=== PATIENT | male | born 1965 | race Caucasian/White ===

== ENCOUNTER 2018-06-16 05:33 | Day surgery (SDC) | payer OTHER ==
[~2018-06-16] VITALS: Ht 180.3 cm; Wt 84.4 kg
--- NOTE | ~2018-06-16 | O ---
[facility] [place] [address] OPERATIVE REPORT Name: BOWEN FLOWER Room #: 150-6 [facility] M.R.#: [id number] Admission: 06/16/18 ������������������ Attend Phys: Don Maria MD Discharge: ������������������ Date of : 61 Report #: [id number] THIS REPORT FOR: //name// CC: Harper Maria DATE OF SERVICE: 06/16/2018 PREOPERATIVE DIAGNOSES: Deviated nasal septum with nasal airway obstruction, chronic maxillary and ethmoid sinusitis with nasal and sinus polyposis. POSTOPERATIVE DIAGNOSES: Deviated nasal septum with nasal airway obstruction, chronic maxillary and ethmoid sinusitis with nasal and sinus polyposis. OPERATIVE PROCEDURE: Nasal septoplasty, endoscopic bilateral maxillary antrostomies with removal of polyps, bilateral complete ethmoidectomies. ANESTHESIA: General by laryngeal mask. DESCRIPTION OF PROCEDURE: The patient was taken to the operating room and placed in supine position. General anesthesia was induced by laryngeal mask. Once adequate general anesthesia was obtained, local nasal anesthesia was induced by submucoperichondrial injection of 1% lidocaine with 1:100,000 epinephrine and topical application of cocaine solution. The patient was then draped in a sterile manner. The patient had a nasal septal deviation primarily to the left side. A hemitransfixion incision was placed on the left side of the nose, and the mucoperichondrium and mucoperiosteum were elevated off the septum. The cartilage was incised from the bony cartilaginous junction, and a portion of cartilage and bone were removed from the midportion of the septum. There was a large spur along the floor consisting of fracture of the maxillary crest and hypertrophic cartilage. The cartilage was removed as a long strip. The maxillary crest was infractured and rongeured. After these maneuvers, the septum sat more in the midline. The hemitransfixion incision was then closed with 4-0 chromic suture and a 4-0 plain mattress sutures placed as well. The nasal endoscope was used to visualize the left nasal cavity and the middle turbinate was deviated medially. There was a hortencia bullosa within the middle turbinate, and this was opened up into the middle meatus by removing the lateral wall. The uncinate process was removed using the microdebrider and the natural opening of the maxillary sinus was located, was enlarged in a posterior inferior manner by removing the soft fontanelle. There are also some Agger nasi cells in the posterior aspect of the opening, and these were opened up into the ethmoid cavity. An ethmoidectomy was performed by removing the ethmoidal bulla and then following the ethmoid air cells back to and through the basal lamella and then forward along the lamina papyracea and fovea ethmoidalis to complete the ethmoidectomy anteriorly. Surgiflo was placed into the ethmoid cavity and middle meatus for hemostasis. The exact same procedure was performed on the [address] [address] OPERATIVE REPORT Name: BOWEN FLOWER Room #: 150-6 [facility] M.R.#: [id number] Admission: 06/16/18 ������������������ Attend Phys: Don Maria MD Discharge: ������������������ Date of : 61 Report #: [id number] right side. The patient tolerated the procedure well. Blood loss approximately 50 mL. The patient was then awoken and taken to the recovery room in stable condition for postoperative monitoring. ��������������������������������������������� ���������������������������������������� By: ��������������������������������������������� 1035 [id number] Don Maria MD /rosalio
[~2018-06-16 05:33] MED LIST: FISH OIL 1,001000 M2 PO; LIPITOR80 MG PO; LOPRESSOR100 M1 PO; PLAVIX 75 MG TA75 MG PO
[2018-06-16 08:30] VITALS: BP 142/88
--- NOTE | 2018-06-16 10:36 | H ---
[facility] [place] [place] [address] HISTORY AND PHYSICAL Name: BOWEN FLOWER Room #: 150-6 [facility] M.R.#: [id number] Admission: 06/16/18 ������������������ Attend Phys: Don Maria MD Discharge: ������������������ Date of : 61 Report #: [id number] THIS REPORT FOR: //name// CC: Harper Maria DATE OF SERVICE: 06/16/2018 DATE OF PROCEDURE: 06/16/2018. HISTORY OF PRESENT ILLNESS: The patient has a sore throat with symptoms of chronic sinusitis. He has hoarseness because of postnasal drainage. He has difficulty breathing through his nose. He has pain and pressure in his sinuses with foul drainage. A CT scan of his sinuses shows a deviated nasal septum to the left side with significant mucous membrane thickening throughout the maxillary and ethmoid sinuses. He had mild mucous membrane thickening in the sphenoid sinuses as well. PAST MEDICAL HISTORY: Otherwise significant for high blood pressure and high cholesterol. He has heart stents. MEDICATIONS: His medications are for hypertension, high cholesterol and a blood thinner. ALLERGIES: He has no known drug allergies. SOCIAL HISTORY: He smokes a half a pack of cigarettes a day. PHYSICAL EXAMINATION: He had allergic appearing nasal mucosa with swelling and clear drainage. His oropharynx and oral cavity were clear. He has a deviated nasal septum to the left side. IMPRESSION: Deviated nasal septum with nasal airway obstruction, chronic maxillary and ethmoid sinusitis. PLAN: Nasal septoplasty, endoscopic bilateral maxillary antrostomies and complete ethmoidectomies. ��������������������������������������������� <ELECTRONICALLY SIGNED> ���������������������������������������� By: Don Maria MD ��������������������������������������������� 06/16/18 1036 [id number] Don Maria MD /nt
[2018-06-16 11:21] VITALS: BP 142/88
== END 2018-06-16 12:15 | disposition home or self-care (01) ==
LOC: TBA 05:33 → OR 05:33
DX: J34.2 Deviated nasal septum (principal); J34.89 Other specified disorders of nose and nasal sinuses; J32.0 Chronic maxillary sinusitis; J32.2 Chronic ethmoidal sinusitis; J33.8 Other polyp of sinus; J33.9 Nasal polyp, unspecified; I10 Essential (primary) hypertension; I25.2 Old myocardial infarction; E78.00 Pure hypercholesterolemia, unspecified; E78.5 Hyperlipidemia, unspecified; F17.210 Nicotine dependence, cigarettes, uncomplicated; Z79.899 Other long term (current) drug therapy; Z95.5 Presence of coronary angioplasty implant and graft; Z98.890 Other specified postprocedural states
CPT/HCPCS: 50010; 50101; 50386; 50398; 51751; 56524; 56528; 56635; 62110; 62900; 64037; 70005